=== PATIENT | female | born 1935 | race Caucasian/White ===

== ENCOUNTER 2017-11-05 12:49 | Outpatient (CLI) | payer MEDICARE, MEDICAID ==
--- NOTE | 2017-11-05 15:50 | MRI ---
MRI THORACIC SPINE NONCONTRAST: 11/05/17 HISTORY: 82-year-old female with M54.9 - dorsalgia unspecified. FINDINGS: Vertebral body heights are maintained. No bone marrow signal abnormality in the thoracic spine. Thora cic spinal cord is normal in signal, and normal in size for patient's age. No extrinsic impingement o n the thoracic spinal cord. No syrinx. No central spinal canal stenosis at any level. No severe neura l foraminal stenosis at any level. No severe disc space narrowing at any level. Anterior osteophytes protrude into the prevertebral space mostly to the right of midline, throughout the mid and lower tho racic spine, suggestive of DISH. ACDF hardware throughout much of the cervical spine noted on medical administrative technician v iew, incompletely imaged. Perivertebral spaces demonstrate no major pathology. IMPRESSION: 1. Evidence for DISH (diffuse idiopathic skeletal hyperostosis). 2. Otherwise normal. POS: [facility]
--- NOTE | 2017-11-05 15:53 | MRI ---
MRI LUMBAR SPINE NONCONTRAST: HISTORY: Low back pain. FINDINGS: Small cysts are associated with the cortex of each kidney. The conus medullaris has a normal appeara nce. Vertebral body heights are maintained. Desiccation of all the intervertebral disks. Small hem angioma within the L3 and L4 vertebral bodies. T12-L1: Minimal disk bulge. The central canal and neural foramina are patent. L1-L2: Mild disk space narrowing and disk bulge. Osteophytosis of the facets. Central canal and ne ural foramina are parent. L2-L3/L3-L4: Mild osteophytosis. Central canal and neural foramina are patent. L4-L5: Minimal degenerative spondylolisthesis. Circumferential degenerative changes with minimal di sk bulge. Mild central canal stenosis. Mild bilateral foraminal stenosis. L5-S1: Osteophytosis of the facets. Central canal and neural foramina are patent. Mild bilateral f oraminal stenosis. IMPRESSION: Mild degenerative changes throughout the lumbar spine, as detailed above. No focal disk herniation o r nerve root compression. POS: [facility]
== END 2017-11-05 12:50 | disposition home or self-care (01) ==
LOC: TBSIIMAG 12:49
PROVIDERS: ATTEND Family Medicine
DX: M54.5 Low back pain (principal); M54.6 Pain in thoracic spine; M25.78 Osteophyte, vertebrae; M43.16 Spondylolisthesis, lumbar region; M47.896 Other spondylosis, lumbar region; M48.061 Spinal stenosis, lumbar region without neurogenic claudication; M99.83 Other biomechanical lesions of lumbar region; M48.8X6 Other specified spondylopathies, lumbar region; M48.14 Ankylosing hyperostosis [Forestier], thoracic region
CPT/HCPCS: 72146; 72148

== ENCOUNTER 2017-11-29 18:35 | Emergency (ER) | payer MEDICARE, OTHER | END 2017-11-29 20:37 | disposition left against medical advice (07) | LOC: ERS 18:35 | DX: J18.9 Pneumonia, unspecified organism (principal); I48.91 Unspecified atrial fibrillation; I10 Essential (primary) hypertension; J45.909 Unspecified asthma, uncomplicated; G47.30 Sleep apnea, unspecified; F41.9 Anxiety disorder, unspecified; Z87.891 Personal history of nicotine dependence; Z79.899 Other long term (current) drug therapy | CPT/HCPCS: 93005 ==

== ENCOUNTER 2018-05-02 07:22 | Outpatient (CLI) | payer MEDICARE, MEDICAID ==
[2018-05-02 14:47] LABS: Hemoglobin 15.2 g/dL (12.0-16.0); Mean Corpuscular HGB CONC 32.7 g/dL (32.0-36.0); Mean Corpuscular Hemoglobin 29.7 pg (27.0-31.0); Mean Corpuscular Volume 90.8 fL (78.0-98.0); Platelet Count 177 thou/uL (130-400); Red Blood Cell (RBC) Count 5.14 mill/uL (4.20-5.40); White Blood Cell (WBC) Count 10.5 thou/uL (4.8-10.8)
[2018-05-02 14:55] LABS: Bilirubin Small (Negative); Blood, Urine Small (Negative); Glucose, Urine (Dipstick) Negative (Negative); Leukocyte Negative (Negative); Nitrite Negative (Negative); Protein, Urine (Dipstick) Negative (Neg-Trace); Urobilinogen 0.2 mg/dL (0.2-1.0); pH, Urine 5.5 (5.0-9.0)
[2018-05-02 15:00] LABS: Clarity Hazy (Clear); Specific Gravity, Urine 1.022 (1.002-1.036)
[2018-05-02 15:04] LABS: RBC/HPF None Seen HPF (0-3)
[2018-05-02 15:05] LABS: Yeast-AUWi Flag 34.7 (0-25.0)
[2018-05-02 15:06] LABS: Bacteria/HPF 1+ HPF (None Seen); Hyaline Casts/LPF 0-3 HYALINE CAST LPF (0-3 Hyaline); Other Casts/LPF None Seen LPF (0-3 Hyaline)
[2018-05-02 15:09] LABS: Anion Gap 17 mmol/L (10-20); BUN (Urea Nitrogen) 15 mg/dL (9.8-20.1); Calc. Creatinine Clearance 0 mL/min (70-130); Calcium 9.6 mg/dL (7.8-10.44); Carbon Dioxide 23 mmol/L (23-31); Chloride 106 mmol/L (98-107); Estimated GFR-MDRD 50; Glucose 113 mg/dL (83-110); Potassium 3.9 mmol/L (3.5-5.1); Sodium 142 mmol/L (136-145)
--- NOTE | 2018-05-02 20:24 | EKG ---
Test Reason : Blood Pressure : / mmHG Vent. Rate : 081 BPM Atrial Rate : 081 BPM P-R Int : 140 ms QRS Dur : 078 ms QT Int : 324 ms P-R-T Axes : 060 -44 088 degrees QTc Int : 376 ms Sinus rhythm with marked sinus arrhythmia Left axis deviation Possible Anterior infarct , age undetermined Abnormal ECG When compared with ECG of 29-NOV-2017 18:41, No significant change was found Confirmed by LUIS ALFREDO CONTI, . S. (4) on 05/02/2018 8:23:44 PM Referred By: CAYLA Confirmed By:DR. Brett LOBATO MD
== END 2018-05-02 07:23 | disposition home or self-care (01) ==
LOC: LABBT 07:22
PROVIDERS: ATTEND Orthopaedic Surgery
DX: Z01.818 Encounter for other preprocedural examination (principal); M19.011 Primary osteoarthritis, right shoulder
CPT/HCPCS: 80048; 81001; 85027; 86850; 86900; 86901; 87081; 93005; 93010

== ENCOUNTER 2018-05-02 12:30 | Inpatient (IN) | payer MEDICARE, OTHER ==
[2018-05-02 12:51] VITALS: BMI 43.9
[2018-05-05] MEDS ORDERED: Midazolam HCl 2 mg/2 ml Vial ONE (06:35)
[2018-05-05] MEDS ORDERED: Fentanyl 100 MCG/2 ML VIAL ONE ×3 (06:36→10:54)
[2018-05-05] MEDS ORDERED: Lidocaine 1% (PF) 30 ML VIAL ONE (06:47)
[2018-05-05] MEDS ORDERED: Levofloxacin 500 mg/D5W 100 ml Premix Bag ONE (06:49)
[2018-05-05] MEDS ORDERED: Clindamycin/D5W 600 mg/50 ml Premix Bag ONE (06:49)
[2018-05-05] MEDS ORDERED: Sodium Chloride 0.9% 100 ML ONE (06:56)
[2018-05-05] MEDS ORDERED: Tranexamic Acid 1,000 MG/10 ML VIAL ONE (06:56)
[2018-05-05] MEDS ORDERED: Clindamycin/D5W 600 MG in Premix Bag 1 BAG IVPB SCH (07:00)
[2018-05-05] MEDS ORDERED: traMADol HCl 50 MG TAB PO PRN ×4 (07:09→11:09)
[2018-05-05] MEDS ORDERED: Promethazine HCl 25 MG/ML VIAL IM PRN ×2 (07:09→09:43)
[2018-05-05] MEDS ORDERED: HYDROcodone/Acetaminophen 10/325 mg Tablet PO PRN ×3 (07:09→11:09)
[2018-05-05] MEDS ORDERED: Zolpidem Tartrate 5 MG TAB PO PRN (07:09)
[2018-05-05] MEDS ORDERED: Ondansetron PF 4 MG/2 ML Vial IVP PRN ×2 (07:09→11:09)
[2018-05-05] MEDS ORDERED: Fentanyl 100 MCG/2 ML VIAL IV PRN (07:09)
[2018-05-05] MEDS ORDERED: Ropivacaine 0.2% 550 ML 550 ML NERVE BLCK SCH (07:09)
[2018-05-05] MEDS ORDERED: Vancomycin HCl 1.5 GM in Sodium Chloride 0.9% 250 ML 300 ML IVPB SCH ×2 (07:45→18:00)
[2018-05-05] MEDS ORDERED: Promethazine HCl 25 MG/ML VIAL SLOW IVP PRN (09:43)
[2018-05-05] MEDS ORDERED: Ondansetron HCl/PF 4 MG/2 ML Vial IVP PRN (09:43)
[2018-05-05] MEDS ORDERED: Albuterol Sulfate 1.25 MG/3 ML NEB ONE (09:46)
[2018-05-05] MEDS ORDERED: Acetaminophen 325 MG TAB PO SCH (10:30)
[2018-05-05] MEDS ORDERED: Ketorolac Tromethamine 30 MG/ML VIAL ONE (10:30)
[2018-05-05] MEDS ORDERED: Acetaminophen 325 MG TAB ONE (10:41)
[2018-05-05] MEDS ORDERED: HYDROcodone/Acetaminophen 10/325 mg Tablet ONE (10:42)
[2018-05-05] MEDS ORDERED: diphenhydrAMINE 50 MG CAP PO PRN (11:09)
[2018-05-05] MEDS ORDERED: Milk Of Magnesia 30 ML UDCUP PO PRN (11:09)
[2018-05-05] MEDS ORDERED: Ondansetron ODT 4 MG TAB PO PRN (11:09)
[2018-05-05] MEDS ORDERED: Acetaminophen 325 MG TAB PO PRN (11:09)
[2018-05-05] MEDS ORDERED: Bisacodyl 10 MG SUPP PR PRN (11:09)
[2018-05-05] MEDS ORDERED: ALPRAZolam 0.5 MG TAB PO PRN (12:27)
[2018-05-05] MEDS ORDERED: Betamethasone 0.1% Cream 45 GM TUBE TOP SCH (12:30)
[2018-05-05] MEDS: Clindamycin/D5W 900 MG in Premix Bag 1 BAG IVPB SCH ×2 (12:37→17:15)
[2018-05-05] MEDS: Dextrose 5 %-0.45 % NaCl 1,000 ML IV SCH ×2 (12:38→20:16)
[2018-05-05] MEDS: tiZANidine HCl 4 MG TAB PO PRN ×2 (12:43→20:15)
[2018-05-05] MEDS: Meclizine HCl 25 MG TAB PO SCH ×3 (12:44→20:16)
[2018-05-05] MEDS ORDERED: Hydrocortisone 1% Cream 30 GM TUBE TOP SCH (12:45)
--- NOTE | 2018-05-05 12:51 | RAD ---
RIGHT SHOULDER 2 VIEWS: HISTORY: Status post reverse total shoulder arthroplasty. FINDINGS: Recent post reverse shoulder arthroplasty changes are noted. No dislocation or evidence for a peripr osthetic fracture. IMPRESSION: Post reversal total shoulder arthroplasty. POS: [facility]
--- NOTE | 2018-05-05 14:49 | OP ---
DATE OF PROCEDURE: 05/05/2018 PREOPERATIVE DIAGNOSES: Right rotator cuff tear and rotator cuff arthropathy. POSTOPERATIVE DIAGNOSES: Right rotator cuff tear and rotator cuff arthropathy. PROCEDURE PERFORMED: Right reverse shoulder arthroplasty. CORRECTIVE THERAPY AIDE: Cordelia Hendrickson PA-C. ANESTHESIOLOGIST: Roberto Maldonado. ANESTHESIA: The patient received a general intubation with interscalene block. ESTIMATED BLOOD LOSS: 200 mL. TOURNIQUET TIME: None. IMPLANTS: Tornier 25 mm baseplate, a 36 x 25 mm standard glenosphere, 3B flex stem, low offset tray at 36 x 6 mm poly, and two locking and two nonlocking screws. ANTIBIOTICS: Clindamycin 600, Levaquin 500, and vancomycin 1.5 g. The patient received TXA 1 g. The patient had 2 small skin tears that were likely from traction while in the two 1 cm skin tears that were from skin traction while pulling on her finger. HISTORY OF PRESENT ILLNESS: Ms. Jordan is an 83-year-old female, who had been seen several times and received clearance from her slag dumper as well as her plant health care technician. She has a history of a tear, treated in [place] in 2004, and she is treated by Dr. Campuzano. The pain is constant, 10/10. The patient has history of atrial fibrillation and asthma. She had a cardiac clearance. I discussed with her this is a difficult problem given her age and health. I discussed that she would not be able to push-off this arm, have to use her cane or walker in left arm. I discussed the patient's complications include pain, scar, bleeding, infection, damage to vital structures, decreased range of motion or strength, nonunion, malunion, fracture above or below the stem, dislocation, need for further surgeries, blood clots, loss of life or limb. The patient understood the risks and benefits and elected to proceed. DESCRIPTION OF PROCEDURE: Time-out was performed designating the patient's right upper extremity as the operative site, based on site, consents, and marking. After time-out, the patient's right upper extremity was prepped and draped in sterile fashion. The patient had a deltopectoral incision made down through skin down the fat, and found the vein, came into the interval between the pec and the patient's deltoid came down, took down a centimeter of the deltoid, and came under the conjoined tendon. We exposed and took off the remnant of the subscap, which was scarred and difficult that was nonpliable. We were able to sublux the head into place. Biceps have been previously torn. We cut guide, removed the spur, we started broaching up to a 3, milled down and placed subscap on top and exposed the patient's glenoid. I did a 360-degree release and completely exposed the glenoid and placed the glenosphere at the base of the glenoid. We then placed our center screw to drill off our center screw, drilled, reamed, removed all the excess osteophytes, cleaned off the base of the shoulder and then came back and placed drill hole for our base plate and placed our base plate, anterior-posterior screws and then compressed the bone and down to the bone. Overall, had good position and a good stable baseplate. We then placed our standard glenosphere in position. There was a little bit of osteophytes from the inferior left, but otherwise had good position. We inspected the neck. We then moved back to the head. We had to cut 3 more millimeters off the humeral head, which could not be reduced in our previous cut, milled down, cleaned off trial at the 6 o'clock position, reduced the shoulder into position, had good overall alignment and stability. She did not sublux or dislocate or abut medially. We then dislocated. We put a drill hole through to sow our subscap down, passed our 3B stem with our low offset at 60 degree with poly, reduced the shoulder. She was very stable, but I could not close the patient's subscapularis later. It was still 5 to 6 mm short; therefore, we did not attempt to bridge it with a concern for damage to the patient's implant from suture fretting, so we removed her sutures, washed and closed the deltopectoral interval with #1 Vicryl [id number] stitches. We controlled bleeding, closed the subcu fat stitch with 0 Vicryl, closed the subcu with 2-0 and jose. The patient will be admitted to the hospital, received preoperative antibiotics. She will be followed inhouse, restarted on Eliquis tomorrow. The patient will be followed. If she is okay tomorrow, she will go home tomorrow versus needing further assistance given she is living alone as well as help with detention. Job ID: [id number]
[2018-05-05] MEDS ORDERED: Ropivacaine 0.5% HCl/PF (150 MG/30 ML VIAL) ONE (15:46)
[2018-05-05] MEDS ORDERED: Ropivacaine 0.2% HCl/PF (40 MG/20 ML VIAL) ONE (15:46)
[2018-05-05] MEDS ORDERED: Glycopyrrolate 0.2 MG/ML 5 ML SYRINGE ONE (15:51)
[2018-05-05] MEDS ORDERED: Ondansetron PF 4 MG/2 ML Vial ONE (15:51)
[2018-05-05] MEDS ORDERED: Lidocaine 1% PF 5 ML VIAL ONE (15:51)
[2018-05-05] MEDS ORDERED: PROPOFOL 200 MG/20 ML VIAL ONE (15:51)
[2018-05-05] MEDS ORDERED: Rocuronium Bromide 10 MG/ML (10ML VIAL) ONE (15:51)
[2018-05-05] MEDS: HYDROcodone/Acetaminophen 10/325 mg Tablet PO PRN ×2 (16:12→20:15)
[2018-05-05] MEDS: Dronedarone HCl 400 MG TAB PO SCH (16:12)
[2018-05-05] MEDS: Mometasone/Formoterol 120 PUFF INHALER INH SCH (19:01)
[2018-05-05] MEDS: Apixaban 2.5 MG TAB PO SCH (20:15)
[2018-05-05] MEDS ORDERED: Montelukast Sodium 10 mg Tablet PO SCH (21:00)
[2018-05-05] MEDS ORDERED: Atorvastatin Calcium 10 MG TAB PO SCH (21:00)
[2018-05-06] MEDS: HYDROcodone/Acetaminophen 10/325 mg Tablet PO PRN ×2 (06:14→11:31)
[2018-05-06] MEDS: Mometasone/Formoterol 120 PUFF INHALER INH SCH (08:58)
[2018-05-06] MEDS ORDERED: Allopurinol 100 MG TAB PO SCH (09:00)
[2018-05-06] MEDS: tiZANidine HCl 4 MG TAB PO PRN (09:15)
[2018-05-06] MEDS: Dronedarone HCl 400 MG TAB PO SCH (09:16)
[2018-05-06] MEDS: Apixaban 2.5 MG TAB PO SCH (09:16)
[2018-05-06] MEDS: Meclizine HCl 25 MG TAB PO SCH ×2 (09:17→14:04)
--- NOTE | 2018-05-06 13:28 | PQF ---
ASHELY MAYNARD JUSTIN MD [id number] [facility] 3318 [id number] CLINICAL DOCUMENTATION IMPROVEMENT CLARIFICATION FORM: ICD-10 Updated PLEASE DO AN ADDENDUM TO THE PROGRESS NOTE WITH ANY DOCUMENTATION UPDATES OR ADDITIONS AND CARRY THROUGH TO DC SUMMARY. THANK YOU. DATE: 05/06/2018 ATTN: DR. KULKARNI Please exercise your independent, professional judgment in responding to the clarification form. Clinical indicators are provided on the bottom of this form for your review Please check appropriate box(s): BMI > 40 with associated diagnosis of: ( check one) [ ] Morbid (Severe) Obesity [ ] Due to excess calories [ ] with Alveolar Hypoventilation (Pickwickian syndrome) [ ] Overweight [ ] Obesity [ ] Other diagnosis [ ] Unable to determine For continuity of documentation, please document condition throughout progress notes and discharge summary. Thank You. BMI < 19 Under weight 19 - 24.9 Healthy 25.0 - 29.9 Slightly Overweight 30.0 - 34.9 Obese 35.0 - 39.9 Severely Obese 40.0 and Over Morbidly Obese CLINICAL INDICATORS - SIGNS / SYMPTOMS / LABS: ANESTHESIOLOGY: BMI-43.9; HEIGHT 62 INCHES AND 240-LBS RISK FACTORS: Advanced Age TREATMENTS: Monitor dietary intake Thank you, Svitlana (This form is maintained as a part of the permanent medical record) 2014 [employer] All Rights Reserved Svitlana Gutierrez RN, CDIS [email or web address] [phone] MTDD
[2018-05-06 16:15] VITALS: BP 96/60; TEMP 98.2
== END 2018-05-06 17:22 | disposition home or self-care (01) | DRG 483 ==
LOC: SURG A 05-05 05:49 → SJJU 05-05 10:49
PROVIDERS: ADMIT Orthopaedic Surgery; ATTEND Orthopaedic Surgery
PROC: 0RRJ00Z Replacement of Right Shoulder Joint with Reverse Ball and Socket Synthetic Substitute, Open Approach (ICD-10-PCS; principal; 2018-05-05)
PROC: 3E0T3BZ Introduction of Anesthetic Agent into Peripheral Nerves and Plexi, Percutaneous Approach (ICD-10-PCS; 2018-05-05)
DX: M19.011 Primary osteoarthritis, right shoulder (principal); I48.91 Unspecified atrial fibrillation; J45.909 Unspecified asthma, uncomplicated; E78.5 Hyperlipidemia, unspecified; I10 Essential (primary) hypertension; K21.9 Gastro-esophageal reflux disease without esophagitis; M48.02 Spinal stenosis, cervical region; E55.9 Vitamin D deficiency, unspecified; E53.8 Deficiency of other specified B group vitamins; I87.2 Venous insufficiency (chronic) (peripheral); G47.33 Obstructive sleep apnea (adult) (pediatric); K57.90 Diverticulosis of intestine, part unspecified, without perforation or abscess without bleeding; I34.0 Nonrheumatic mitral (valve) insufficiency; I36.1 Nonrheumatic tricuspid (valve) insufficiency; Z87.01 Personal history of pneumonia (recurrent); Z79.899 Other long term (current) drug therapy; Z79.01 Long term (current) use of anticoagulants; Z88.0 Allergy status to penicillin; Z88.8 Allergy status to other drugs, medicaments and biological substances; Z79.51 Long term (current) use of inhaled steroids
CPT/HCPCS: A4306; J1885; J1956; J2001; J2250; J2405; J2704; J2795; J3010; J3370; J3490; J7050

== ENCOUNTER 2020-04-09 19:30 | Outpatient (CLI) | payer MEDICARE, MEDICAID | END 2020-04-09 19:31 | disposition home or self-care (01) | LOC: SLEEPLAB 19:30 | PROVIDERS: ATTEND Family Medicine | DX: G47.33 Obstructive sleep apnea (adult) (pediatric) (principal); R53.83 Other fatigue; J44.9 Chronic obstructive pulmonary disease, unspecified; E66.9 Obesity, unspecified; G47.10 Hypersomnia, unspecified; Z68.41 Body mass index [BMI] 40.0-44.9, adult | CPT/HCPCS: 95811 ==

== ENCOUNTER 2021-08-11 06:55 | Day surgery (SDC) | payer MEDICARE, MEDICAID ==
[2021-08-07 10:58] VITALS: BMI 43.0
[2021-08-11] MEDS ORDERED: Fentanyl 100 MCG/2 ML VIAL ONE (09:05)
[2021-08-11] MEDS ORDERED: PROPOFOL 200 MG/20 ML VIAL ONE (09:19)
== END 2021-08-11 10:55 | disposition home or self-care (01) ==
LOC: SDC 06:55
PROVIDERS: ATTEND Internal Medicine
PROC: 0DB78ZX Excision of Stomach, Pylorus, Via Natural or Artificial Opening Endoscopic, Diagnostic (ICD-10-PCS; principal; 2021-08-11)
PROC: 0DBM8ZX Excision of Descending Colon, Via Natural or Artificial Opening Endoscopic, Diagnostic (ICD-10-PCS; 2021-08-11)
PROC: 0DBN8ZX Excision of Sigmoid Colon, Via Natural or Artificial Opening Endoscopic, Diagnostic (ICD-10-PCS; 2021-08-11)
DX: D12.4 Benign neoplasm of descending colon (principal); D12.5 Benign neoplasm of sigmoid colon; K31.89 Other diseases of stomach and duodenum; K57.30 Diverticulosis of large intestine without perforation or abscess without bleeding; K64.4 Residual hemorrhoidal skin tags; K64.8 Other hemorrhoids; K58.1 Irritable bowel syndrome with constipation; I48.91 Unspecified atrial fibrillation; I10 Essential (primary) hypertension; E78.5 Hyperlipidemia, unspecified; K21.9 Gastro-esophageal reflux disease without esophagitis; M19.90 Unspecified osteoarthritis, unspecified site; G89.29 Other chronic pain; M54.9 Dorsalgia, unspecified; J45.909 Unspecified asthma, uncomplicated; Z87.891 Personal history of nicotine dependence; Z79.01 Long term (current) use of anticoagulants; Z79.899 Other long term (current) drug therapy; Z88.1 Allergy status to other antibiotic agents; Z88.0 Allergy status to penicillin; Z88.5 Allergy status to narcotic agent; Z88.8 Allergy status to other drugs, medicaments and biological substances; Z91.040 Latex allergy status; Z91.048 Other nonmedicinal substance allergy status
CPT/HCPCS: 88305; 88342; J2704; J3010

== ENCOUNTER 2023-04-22 12:17 | Outpatient (CLI) | payer OTHER, MEDICAID | END 2023-04-22 12:18 | disposition home or self-care (01) | LOC: RAD 12:17 | PROVIDERS: ATTEND Internal Medicine | DX: R06.00 Dyspnea, unspecified (principal) | CPT/HCPCS: 71046 ==